=== PATIENT | male | born 1980 | race Caucasian/White ===

== ENCOUNTER → 2017-02-06 | Outpatient (CLI) | payer OTHER ==
[~2017-02-06] MED LIST: LIPITOR10 MG PO; LOPRESSOR25 MG; LOPRESSOR25 MG PO
--- NOTE | ~2017-02-06 | ESTC ---
Cardiac Perfusion Imaging Demographics Patient Name JACI Franco JR Gender Male Patient Number [id number] Race Visit Number [id number] Ethnicity Corporate ID Room Number Accession Number [id number] Height 72 inches Date of 1980 Weight 270 pounds Interpreting Gerardo De Jesus MD Date of study 02/06/2017 Physician Supervising /GULSHAN GRUBER Technologist Sarath Ferreira APRN Ordering Physician Stress technician trainee Stress ECG Reading Дмитрий Brooke Nurse Fracisco Gomez Physician JEANNE nurse practitioner physicians assistant Procedure Type: Nuclear Stress Test:Exercise, Cardiolite Stress Test Procedure Start time: 02/06/2017 08:10 Indications: Palpitations. Risk Factors The patient risk factors include:former tobacco use and ( years not smokin). Conclusions Summary Cardiolite SPECT images demonstrates an inducible reversible defect of mild to modertate severity involving the mid anterior wall. This does extend into the anterolateral region. No evidence of underlying fixed defect. TID is normal at 1.01 Gated images demonstrate normal left ventricular systolic function without inducible wall motion abnormalities. LVEF is 61% Stress Protocols Resting ECG RSR with rare PVC. Resting HR:75 bpm Resting BP:138/65 mmHg Pre-stress physical exam: Patient assessed by Zenobia Choe APRN prior to testing. Stress Protocol:Exercise Peak HR:171 bpm HR response: Appropriate Peak BP:184/84 mmHg BP response: Appropriate Predicted HR: 181 bpm HR/BP product:03021 % of predicted HR: 94 Test duration:10:17 min Reason for termination:Target heart rate Exercise effort:Good ECG Findings No ECG changes suggestive of ischemia. Arrhythmias None Symptoms Shortness of breath. Stress Interpretation Appropriate hemodynamic response to exercise. No significant ST-T wave changes with exercise. EKG portion is negative for ischemia by diagnostic criteria. The Sanchez Treadmill score was 10 .This corresponds to a low risk stress test. Stress supervision and interpretation provided by Zenobia Choe APRN Imaging Results Summed scores - Summed stress score: 1 - Summed rest score: 2 - Summed difference score: -1 Stress ejection Ejection fraction:62 % EDV :125 ml ESV :48 ml Stroke volume :77 ml LV mass :164 gr Imaging Protocols Rest Stress Isotope:Tc99m Sestamibi IV Isotope: Tc99m Sestamibi IV Isotope dose:15.7 mCi Isotope dose:45.5 mCi Date:02/06/2017 07:10 Date:02/06/2017 08:48 Technique: SPECT Technique: Gated Supine SPECT Supine Scan Time:45-60 minutes post Scan Time:45-60 minutes post injection injection Medical History Admission Data Admission date: 02/06/2017 Admission Time: 06:42 Hospital Status: Outpatient. Signatures dtt: Neal Carrillo (cardio) dtd: 02/06/17 0810 Physician Self Edit
== END | disposition disaster alternative care site (69) ==
LOC: GRAD 06:42
DX: R00.2 Palpitations (principal); Z87.891 Personal history of nicotine dependence
CPT/HCPCS: A9500

== ENCOUNTER 2017-02-16 21:55 | Observation (INO) | payer OTHER ==
[~2017-02-16] VITALS: Ht 182.9 cm; Wt 121.0 kg
--- NOTE | ~2017-02-16 | HP ---
PATIENT'S NAME: JACI [facility] AGE: 37 Y [address] ROOM: [place] [address] LOCATION: GPCU ADMIT DATE: 02/16/2017 History & Physical DISCHARGE DATE: 02/17/2017 FAMILY PHYSICIAN: Joseph Trevino MD ATTENDING PHYSICIAN: Joseph Trevino DATE OF SERVICE: CHIEF COMPLAINT: Chest pain. HISTORY OF PRESENT ILLNESS: The patient is a 37-year-old gentleman, who has seen Cardiology, and has recently underwent a treadmill Cardiolite stress test, which was positive. He was scheduled to have a left heart catheterization on Thursday, but developed exertional chest pain, with pain into his left arm that would not go away. So, he presented to the Emergency Room. After receiving three sublingual nitroglycerin, the chest pain did resolve. Enzymes and EKG were negative at the time of admission, and remain negative at this time. PAST MEDICAL HISTORY: Significant for 1. Chest pain. 2. Fatigue. 3. History of kidney stones. PAST SURGICAL HISTORY: Include 1. Appendectomy. 2. Right arm repair. 3. Left ankle surgery. 4. Kidney stone. ALLERGIES: TO BEE STINGS. CURRENT MEDICATIONS: Include 1. Metoprolol 25 mg b.i.d. 2. Aspirin 81 mg daily. SOCIAL HISTORY: The patient is . He does farm. A previous smoker, smoking cigarettes, and quitting in 2009. No alcohol use. PATIENT'S NAME: JACI [facility] AGE: 37 Y [address] ROOM: [place] [address] LOCATION: GPCU ADMIT DATE: 02/16/2017 History & Physical DISCHARGE DATE: 02/17/2017 FAMILY PHYSICIAN: Joseph Trevino MD ATTENDING PHYSICIAN: Joseph Trevino FAMILY HISTORY: Father is alive with history of DVTs. Mother with diabetes. Sister has had a previous heart catheterization. REVIEW OF SYSTEMS: CONSTITUTIONAL: Increased fatigue. No weight changes. No fever or chills. HEENT: He does wear glasses, otherwise negative. CARDIOVASCULAR: Positive for recent chest pain as per HPI. PULMONARY: No cough or shortness of breath. GASTROINTESTINAL: Negative. GENITOURINARY: Negative. PHYSICAL EXAMINATION: GENERAL: This is an alert, very pleasant male, in no acute distress. HEENT: Moist mucous membranes. Pupils were reactive. Extraocular muscles were intact. NECK: Supple with no lymphadenopathy. HEART: Regular without a murmur. LUNGS: Clear to auscultation bilaterally. ABDOMEN: Soft and nontender with no hepatosplenomegaly. GENITOURINARY: Deferred. EXTREMITIES: Showed no clubbing, cyanosis, or edema. LABORATORY DATA: Cardiac enzymes were negative as mentioned. DIAGNOSTIC STUDIES: EKG is stable. ASSESSMENT AND PLAN: 1. Chest pain with a positive stress test. We will admit for serial enzymes. We will consult Dr. Carrillo for probable heart catheterization in the morning. 2. Obesity. He needs to work on dietary changes and exercise. Dr. Joseph Trevino is to resume care in the morning. MD RALPH JIMENEZ/imtiaz PATIENT'S NAME: SANDY BEATTY [facility] AGE: 37 Y [address] ROOM: [place] [address] [facility] ADMIT DATE: 02/16/2017 History & Physical DISCHARGE DATE: 02/17/2017 FAMILY PHYSICIAN: Joseph Trevino MD ATTENDING PHYSICIAN: Joseph Trevino /[id number] D: [id number] T: [id number] HISTORY & PHYSICAL
--- NOTE | ~2017-02-16 | CATH ---
Cardiac Diagnostic Report Demographics Patient Name JACI Franco Gender Male JR Date of 1980 Age 37 year(s) Patient Number [id number] Date of Study 02/17/2017 Visit Number [id number] Room Number G[address] [place] [id number] Ht 182.88 cm Wt 121 kg Referring Uriel Amaya MD Primary Physician Physician Performing Gerardo De Jesus MD Secondary Physician Physician Diagnostic Gerardo De Jesus MD Assisting Physician Physician Interventional Physician [place] [facility] Sales Manager Physician Findings and Conclusions Diagnostic Findings and Conclusion Non-obstructive CAD Normal LV function EF 65% Diagnostic Recommendations Medical therapy Procedure Description The patient was brought to the diagnostic cardiac catheterization-EP laboratory in the fasting, non-sedated state. Informed consent was obtained in the written and verbal form after the risks and benefits were explained. The patient had no further questions and agreed to proceed. The planned puncture-incision site(s) were shaved and prepped with ChloraPrep and draped in the usual sterile manner. Conscious sedation, supplemental oxygen, and pain control medications were delivered by a registered nurse under physician guidance. Surface ECG rhythm, blood pressure measurement, and pulse oximetry were monitored throughout the procedure. Arterial access. The access site was infiltrated with lidocaine. The vessel was entered with the Seldinger technique. A sheath was advanced into the vessel and used for catheter placement. Selective left coronary angiography. A catheter was advanced into the left coronary vessel ostium under Fluoroscopic guidance. Contrast was injected by hand. Images were obtained in multiple projections. Selective right coronary angiography. A catheter was advanced into the right coronary vessel ostium under fluoroscopic guidance. Contrast was injected by hand. Images were obtained in multiple projections. Left heart catheterization with ventriculography. A catheter was advanced across the aortic valve to the left ventricle under fluoroscopic guidance. Resting hemodynamics were obtained. With the catheter at the left ventricular apex, contrast was injected. Images were obtained in [place] projections. Post-ventriculography LV pressure was obtained. The catheter was gradually withdrawn into the aorta with continuous pressure recording. Arterial artery hemostasis was achieved. The patient was transferred to a regular nursing floor via cart accompanied by a nurse. The patient left the laboratory in stable condition. Diagnostic Cath Status: Urgent Procedure Procedure Type Diagnostic procedure:Ventriculogram:, Left, Angiography:, Coronary Angios w/[facility] Indications: Abnormal cardiolyte. The procedure was explained in detail to the patient. Risks, complications and alternative treatments were reviewed. Written consent was obtained. Medications Reviewed with Patient prior to Procedure. Angiographic Findings Dominance: Right Cardiac Arteries and Lesion Findings LMCA: Normal (0% Stenosis).Large WNL LAD: Normal (0% Stenosis).Large prox, medium mid, distal small all normal Diag 1 small ok LCx: Normal (0% Stenosis).Large ND, wnl OM1 small OM2 large wnl RCA: Normal (0% Stenosis).Large wnl PL medium wnl PDA medium wnl Procedure Data Procedure Date Date: 02/17/2017Start: 11:19 AMEnd: 11:38 AM Entry Locations - Retrograde Percutaneous access was performed through the Right Femoral artery (Primary location). A 6 Fr sheath was inserted. Hemostasis was successfully obtained using Angio-Seal STS PLUS (St. Esvin). Closure Comments: deployed by lore. Procedure Medications Order and Administration + + +-------+------+ !Time !Medication !Dosage !Route ! + + +-------+------+ !02/17/2017 11:16 AM !Versed !1 mg !I.V. ! + + +-------+------+ !02/17/2017 11:16 AM !Fentanyl !25 mcg !I.V. ! + + +-------+------+ !02/17/2017 11:20 AM !Versed !1 mg !I.V. ! + + +-------+------+ Devices Used - A6 Fr. BS JL 4 Diag. Catheterwas used for:Left coronary angiography. - A6 Fr. BS JR 4 Diag. Catheterwas used for:Right coronary angiography. - A6 Fr. BS Angled Pigtail Diag. Catheterwas used for:Left ventriculography. Contrast Material - Isovue [id number] ml Fluoroscopy Time: Diagnostic: 3:06 minutes. Total: 3:06 minutes. Fluoroscopy Dose: Diagnostic: 1027 mGy. Total: 1027 mGy. Estimated Blood Loss: 5 ml. Medical History Performed Procedures and Imaging Results - Stress testing with SPECT MPIwas performed. Results were: Positive. Allergies - No known allergies. Risk Factors The patient risk factors include:last creatinine: 1.3 mg/dl, creatinine clearance: 130.57 ml/min and former tobacco use. Admission Data Admission Date: 02/16/2017 Admission Time: 11:46 PM Admit Source: Emergency department Insurance Payors: Private health insurance. Admission Medications + +------+------+ + + + + !Medication !Dosage!Times !Last !Last !Administered !Comments ! ! ! !Per !Delivery !Delivery ! ! ! ! ! !Day !Date !Time ! ! ! + +------+------+ + + + + !Beta ! ! ! ! !Yes ! ! !Timmy ! ! ! ! ! ! ! !(any) ! ! ! ! ! ! ! + +------+------+ + + + + !Statin ! ! ! ! !Yes ! ! !(any) ! ! ! ! ! ! ! + +------+------+ + + + + Clinical Evaluation Leading to Procedure - The patient's CAD presentation was assessed as: Unstable angina. - The patient's anginal syndrome during the past two weeks was assessed as: Class III according to the [place] Cardiovascular Society Classification System (CCS). Anti-anginal medications were prescribed during the past two weeks. The medications are: Beta Blockers and Other. VA LV function assessed as:Normal. Ejection Fraction - 02/17/2017 - Method: LV gram. EF%: 65. LVA Segment Contractility 1 - Normal 3 - Mild 5 - Severe 7 - Dyskinesis hypokinesis hypokinesis 2 - 4 - Moderate 6 - Akinesis 8 - Aneurysm Hypokinesis hypokinesis Hemodynamics Condition: Rest O2 Consumption: Estimated: 281.96Heart Rate: 56 bpm Pressures (mmHg) +-----+ + !Site !Pressure ! +-----+ + !AO !96/62 (79) ! +-----+ + !LV !106/0 ,13 ! +-----+ + !LV !108/3 ,14 ! +-----+ + !LV !108/-10 ,12 ! +-----+ + !LV !113/-3 ,13 ! +-----+ + !AO !102/59 (80) ! +-----+ + !LV !110/-5 ,13 ! +-----+ + Valve Gradients and Areas + +---------+---------+---------+ +---------+ + !Valve !Peak !Mean !Area !Index !Flow !Source ! + +---------+---------+---------+ +---------+ + !Aortic !7 !10 ! ! ! ! ! + +---------+---------+---------+ +---------+ + !Aortic !7 !10 ! ! ! ! ! + +---------+---------+---------+ +---------+ + Shunts Oxygen Values O2 Capacity 216.24 O2 Consumption 281.96 Discharge Data Discharge Date: 02/17/2017 Hospital Status: Inpatient Signatures dtt: Neal Carrillo (cardio) dtd: 02/17/17 1119 Physician Self Edit
--- NOTE | ~2017-02-16 | ER ---
PATIENT'S NAME: JACI [facility] AGE: 37 Y [address] ROOM: [place] [address] LOCATION: GPCU ADMIT DATE: 02/16/2017 ER/Outpatient Report DISCHARGE DATE: FAMILY PHYSICIAN: Joseph Trevino MD ATTENDING PHYSICIAN: Joseph Trevino TIME OF ARRIVAL: 2150 hours. TIME SEEN: 2200 hours. CHIEF COMPLAINT: This is a 37-year-old male. He is previously quite healthy. He is in with complaint of chest pain, left arm pain and heaviness, intermittently over the past 24 to 36 hours. HISTORY OF PRESENT ILLNESS: The patient reports that he has been having intermittent chest pain for the past several weeks. He had a stress test 9 days ago that he failed and a heart cath had been scheduled. He states he has had an acceleration of his chest pain and palpitations that began about 36 hours ago. He states he has had markedly increased frequency of episodes of pain and palpitations. PAST MEDICAL HISTORY: He denies any chronic medical problems. CURRENT MEDICATIONS: Include metoprolol, which he started recently because of his palpitations. REVIEW OF SYSTEMS: Otherwise, negative. SOCIAL HISTORY: He is a nonsmoker. He chews about 1 can of tobacco a day. PHYSICAL EXAMINATION: GENERAL: Alert, overweight male in no acute distress. VITAL SIGNS: Stable. SKIN: Warm and dry. Color is normal. HEAD, EARS, EYES, NOSE, AND THROAT: Normal. NECK: Supple. HEART: Regular rate and rhythm without murmur. LUNGS: Clear. Breath sounds are equal. ABDOMEN: Soft and nontender. PATIENT'S NAME: JACI [facility] AGE: 37 Y [address] ROOM: [address] [place] [id number] LOCATION: GPCU ADMIT DATE: 02/16/2017 ER/Outpatient Report DISCHARGE DATE: FAMILY PHYSICIAN: Joseph Trevino MD ATTENDING PHYSICIAN: Joseph Trevino EXTREMITIES: Normal. NEUROLOGIC: Exam is normal. LABORATORY DATA: EKG revealed normal sinus rhythm with no acute ST or T-wave changes. CBC, comprehensive metabolic profile, and cardiac enzymes were negative. EMERGENCY DEPARTMENT COURSE: The patient was given nitroglycerin 0.4 sublingual x3 and was pain free after that. Dr. Trevino was called and agreed to make arrangements to admit the patient. The slide forming machine tender was called. ASSESSMENT: Chest pain/accelerating unstable angina. PLAN: Admit for serial enzymes and inpatient heart catheterization. MD PTEEY ODONNELL/sierral /[id number] d: 02/17/17 0500 t: 03/03/17 1819, OUTPATIENT REPORT
--- NOTE | ~2017-02-16 | CON ---
PATIENT'S NAME: SANDY BEATTY [facility] AGE: 37 Y [address] ROOM: [place] [address] LOCATION: GPCU ADMIT DATE: 02/16/2017 Consultation DISCHARGE DATE: FAMILY PHYSICIAN: Joseph Trevino MD ATTENDING PHYSICIAN: Joseph Trevino REASON FOR CONSULT: Chest pain. HISTORY OF PRESENT ILLNESS: This is a 37-year-old gentleman, well known to Dr. Brenner, who recently underwent a treadmill Cardiolite stress test that was positive showing anterior wall provocable ischemia. He was scheduled for left heart catheterization this Thursday. 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 He started experiencing some chest discomfort with left arm pain that would not go away. Therefore, he presented to the emergency room for further evaluation. He received 3 sublingual nitroglycerin with total relief then of his chest pain. He was then admitted to the hospital for serial cardiac enzymes and probable left heart catheterization will be scheduled in the morning. His cardiac enzymes had been negative. His sodium and potassium were fine. Creatinine was 1.4 on admission. Magnesium was 2.2. His white count was 7.3 with a hemoglobin of 16.2. His EKG is showing a regular sinus rhythm without ST or T-wave changes. PAST MEDICAL HISTORY: 1. Presyncope. 2. He did have symptomatic PVCs noted on his Zio monitor. 3. Chest pain. 4. Fatigue. 5. History of kidney stones. PAST SURGICAL HISTORY: 1. Appendectomy. 2. Right arm repair. 3. Kidney stone removal. 4. Left ankle surgery. ALLERGIES: TO BEES CAUSING ANAPHYLAXIS. HOME MEDICATIONS: 1. Metoprolol tartrate 25 mg p.o. b.i.d. 2. Aspirin 81 mg daily. SOCIAL HISTORY: PATIENT'S NAME: SANDY BEATTY [facility] AGE: 37 Y [address] ROOM: [place] [address] LOCATION: GPCU ADMIT DATE: 02/16/2017 Consultation DISCHARGE DATE: FAMILY PHYSICIAN: Joseph Trevino MD ATTENDING PHYSICIAN: Joseph Trevino He is a former smoker, he smokes a pack of cigarettes a day for 10 years, he quit in 2009. He does not drink alcohol. FAMILY HISTORY: Father is alive, he has a history of DVTs and is on anticoagulation. His mother is alive, she is overweight, she has diabetes mellitus. He is . He has a daughter and 2 sons who are all healthy. He has a sister who had a heart cath done in the past. REVIEW OF SYSTEMS: GENERAL: He has been more fatigued lately. He denies any weight loss. No fevers, chills, or sweats. HEENT: Head: No history of headache. Eyes: No blurred vision or double vision. He does wear corrective lenses at times. Ears: No problems with hearing. Nose: No epistaxis or rhinorrhea. Mouth: No gingival bleeding. PULMONARY: No complaints of cough or hemoptysis. CV: Per HPI. GI: Negative for nausea, vomiting, or diarrhea. No melena. No hematochezia. : Negative for dysuria, polyuria, or hematuria. He does have problems with kidney stones. ENDOCRINE: No history of hyper or hypothyroid or hyperglycemia. NEUROLOGIC: He does have a little problem with anxiety. DERMATOLOGIC: No skin, hair, or nail changes that are concerning. HEMATOLOGIC: He denied anemia, leukemia, or cancer. MUSCULOSKELETAL: No complaints of arthralgias or myalgias. PHYSICAL EXAMINATION: VITAL SIGNS: His height is 72 inches tall, weight is 270 pounds, and BMI is 36.6. Blood pressures are in the 130s/60, heart rate is 70, and O2 saturation is 95%. GENERAL: This is alert, oriented, very pleasant male who appears to be in no acute distress. HEENT: His pupils were equal, they did react briskly to light. EOMs are intact. NECK: Soft and supple. No lymphadenopathy. No thyromegaly. JVD is flat. No carotid bruits were noted. CV: Regular with a normal S1 and S2 without murmur. No rubs, clicks, or gallops were noted. CHEST: Breath sounds were clear to auscultation without evidence of wheezes, rales, or rhonchi. ABDOMEN: Soft. Bowel sounds are present, without evidence of rebound tenderness. EXTREMITIES: No peripheral edema, no clubbing, no cyanosis. Distal pulses are 2+/4. DERMATOLOGIC: His skin is warm, dry, and pink. His face is little flushed. PATIENT'S NAME: SANDY BEATTY [facility] AGE: 37 Y [address] ROOM: [address] [place], [place] [address] [facility] ADMIT DATE: 02/16/2017 Consultation DISCHARGE DATE: FAMILY PHYSICIAN: Joseph Trevino MD ATTENDING PHYSICIAN: Joseph Trevino PSYCHIATRIC: His mood and affect are pleasant. ASSESSMENT: 1. Chest pain with noted positive stress test. We are going to schedule him for a left heart catheterization this morning. The risks and benefits have been explained to him and he is in agreement and willing to proceed with that heart catheterization. 2. Chronic fatigue. He does have a history of snoring, but we will see how he does after the heart catheterization and further recommendations will be forthcoming. 3. Symptomatic premature ventricular contractions. He is to continue with his beta-henrik therapy. 4. Obesity. He is working on dietary restraints. Further recommendations will be forthcoming. The assessment and plan, history of present illness, and physical exam are per Dr. Brenner. We would like to thank Dr. Joseph Trevino for allowing us to participate in the patient's care. ANNEL CHACON APRN FOR MIKA BRENNER MD TGP/sierral /[id number] d: 02/17/17 1822 t: 02/25/17 1219, CONSULTATION REPORT
[2017-02-16 22:32] LABS: BASOPHIL % 0.6 %; EOSINOPHIL # 0.1 K/uL (0.0-0.5); EOSINOPHIL % 1.4 %; HEMATOCRIT 43.6 % (37.0-53.0); HEMOGLOBIN 15.9 g/dL (12.0-17.0); IMMATURE GRANULOCYTE % 0.4 %; LYMPHOCYTE # 2.4 K/uL (0.8-4.0); LYMPHOCYTE % 34.1 %; MCH 29.8 pg (27.0-34.0); MCHC 36.5 gm/dL (32.0-36.5); MCV 81.6 fl (83.0-98.0); MONOCYTE # 0.5 K/uL (0.0-1.0); MONOCYTE % 7.7 %; NEUTROPHIL # (ANC) 3.9 K/uL (1.4-9.0); NEUTROPHIL % 55.8 %; NRBC % 0 /100WBC (0-0.00); PLATELET COUNT 199 K/uL (150-450); RBC 5.34 M/uL (4.00-6.00); RDW-CV 12.1 % (11.9-14.6)
[2017-02-16 22:42] LABS: INR - (THERAPEUTIC) 0.95 (0.92-1.07); PTT 26 SECONDS (25-32)
[2017-02-16 22:51] LABS: ALBUMIN 4.1 gm/dL (3.5-5.0); ALK PHOS 70 IU/L (33-138); ALT 57 IU/L (12-78); ANION GAP 10.9 (10.0-19.0); AST 35 IU/L (10-40); BLOOD UREA NITROGEN 20 mg/dL (6-24); CALCIUM 9.3 mg/dL (8.5-10.5); CHLORIDE 107 mMol/L (96-110); CO2 23 mMol/L (22-32); CPK 271 IU/L (35-332); CREATININE 1.3 mg/dL (0.6-1.3); ESTIMATED GFR (MDRD EQUATION) > 60; MAGNESIUM 2.2 mg/dL (1.8-2.6); POTASSIUM 3.9 mMol/L (3.7-5.1); SODIUM 137 mMol/L (135-145); TOTAL BILIRUBIN 0.6 mg/dL (0.0-1.5); TOTAL PROTEIN 7.4 g/dL (6.0-8.4)
[2017-02-17 00:20] LABS: CPK 246 IU/L (35-332)
[2017-02-17] MEDS ORDERED: LOPRESSOR25 MG (00:27)
[2017-02-17] MEDS ORDERED: LOPRESSOR25 MG PO (00:28)
--- NOTE | 2017-02-17 02:37 | NUR ---
Patient presented to the ER with chest "burning", pain, and shortness of breath. He received some medications in ER and is currently denies any chest discomfort at this time. He states he has had chest pain for a couple weeks. He did under go a stress test last week and found out that result was positive today (02/16/17) and was to have a heart cath on thursday. He has NKA besides bee stings. Heart history of PVCs, and no other significant health history.
--- NOTE | 2017-02-17 04:13 | NUR ---
Significant Event: A&Ox3, VSS on room air. Denies chest pain at this time. Resting well in bed. 1 void in ER, UA needed. NPO for possible heart cath in AM. [place] to see. Denies needs. SBA to bathroom. Follow up: Continue with plan of care.
[2017-02-17 06:21] LABS: CPK 189 IU/L (35-332)
[2017-02-17 12:59] LABS: CPK 152 IU/L (35-332)
[2017-02-17] MEDS ORDERED: LIPITOR10 MG PO (13:17)
--- NOTE | 2017-02-17 14:27 | NUR ---
PT A/OX3. PIV DC'D PRIOR TO D/C. R) GROIN SOFT, NO HEMATOMA, CSM INTACT. DENIES ANY SOB, ARIAS, N/T, OR YORK. VSS, AFEBRILE, LS CLEAR ON RA.
== END 2017-02-17 14:30 | disposition disaster alternative care site (69) ==
LOC: GMED 21:55 → GPCU 23:46
PROVIDERS: Emergency Medicine; ADMIT Family Medicine
DX: I25.110 Atherosclerotic heart disease of native coronary artery with unstable angina pectoris (principal); Z98.890 Other specified postprocedural states; I49.3 Ventricular premature depolarization; E66.9 Obesity, unspecified; Z68.36 Body mass index [BMI] 36.0-36.9, adult; Z87.891 Personal history of nicotine dependence; Z79.82 Long term (current) use of aspirin; Z79.899 Other long term (current) drug therapy; Z90.49 Acquired absence of other specified parts of digestive tract
CPT/HCPCS: C1760; G0378; J1644; J2250; J3010; J7030

== ENCOUNTER 2017-02-24 00:14 | Emergency (ER) | payer OTHER ==
--- NOTE | ~2017-02-24 | ER ---
PATIENT'S NAME: JACI [facility] AGE: 37 Y [address] ROOM: [place], [place] [address] LOCATION: ED ADMIT DATE: 02/24/2017 ER/Outpatient Report DISCHARGE DATE: 02/24/2017 FAMILY PHYSICIAN: Joseph Trevino MD ATTENDING PHYSICIAN: Chano Zapata Admission date and time documented in the medical record. I saw the patient at 0025 hours. CHIEF COMPLAINT: Head pressure, chest pain, and fever. HISTORY OF PRESENT ILLNESS: This patient is a 37-year-old male who today has developed left lower chest pain, generalized headache, fullness in his head, fever, nonproductive cough, and nausea. He thinks he is getting an infection. He has had some problems with palpitations and chest pain. A recent heart catheterization this month was negative. He had a temperature of 101.5 at home. Did take aspirin here in the emergency department, was 98.4 orally. No abdominal pain, nausea, vomiting, or diarrhea. No urinary frequency, urgency, or dysuria. No lightheadedness, dizziness, syncope, or near syncope. No fall or trauma. No eyes, ears, nose, throat, neck, or spine pain. No history of neuro changes, psych issues, endocrine problems. HOME MEDICATIONS: See attached medication list. ALLERGIES: NONE. SOCIAL HISTORY: Nonsmoker. Chews a can of tobacco a day. Occasional intake of alcohol. SIGNIFICANT PAST MEDICAL HISTORY: Palpitations, tobacco abuse, and nephrolithiasis. OPERATIONS: Cystoscopy with stone removal and stent placement, appendectomy, cardiac catheterization, and right arm surgery. REVIEW OF SYSTEMS: All systems reviewed by me are negative with the exception of those discussed in the history of present illness. PHYSICAL EXAMINATION: PATIENT'S NAME: JACI [facility] AGE: 37 Y [address] ROOM: [place], [place] [address] LOCATION: ED ADMIT DATE: 02/24/2017 ER/Outpatient Report DISCHARGE DATE: 02/24/2017 FAMILY PHYSICIAN: Joseph Trevino MD ATTENDING PHYSICIAN: Chano Zapata VITAL SIGNS: Temperature 98.4 orally, pulse 94, respirations 16, blood pressure 151/86, O2 saturation on room air is 95%. HEENT: Head: Normocephalic. Eyes: Clear. Ears: Clear TMs bilaterally. Nose and throat: Clear. NECK: Negative. LUNGS: Some scattered rhonchi. Coarse cough. HEART: Regular. Pulses are palpable. ABDOMEN: Soft, nondistended, nontender. Good bowel tones. EXTREMITIES: Intact. NEUROVASCULAR: Intact. SKIN: Clear. No skin eruptions or rash. DIAGNOSTIC DATA: EKG showed sinus rhythm. No acute ST elevation, ischemic change, or arrhythmia. Chest x-ray showed no acute infiltrate. We will review x-ray with the radiologist. LABORATORY DATA: CPK was 113. Reported oxzje-vv-tija cardiac enzymes were normal. CRP was 0.52. ProBNP was less than 30. CMS was normal except for a slightly elevated creatinine 1.4, low GFR of 56. Lactate was 0.9. White count is 4800, 72 segs, 16 lymphs, 11 monos, 1 baso. Hemoglobin was 15.5, hematocrit 43.0, and platelet count is 159,000. D-dimer is 0.66. I did give the patient 1 L of normal saline IV in the emergency room, Benadryl 50 mg IV in the emergency room, followed 10 minutes later by Compazine 10 mg, Nubain 5 mg IV for headache. The patient did well. IMPRESSION: 1. Bronchitis. 2. Headache. 3. Palpitations. 4. Tobacco abuse. 5. Mild renal insufficiency. PLAN: The patient dismissed home. Observation. Activity as tolerated. Fluids, good hydration. Diet as tolerated. Continue present home medications and care. Z-Brigido, take as directed. Albuterol oral inhaler, 2 puffs 30 seconds apart 4 times a day and p.r.n. as needed. If he gets chest tightness and wheezing, follow up with personal physician as needed. Discussion ensued with the patient concerning my findings and recommendations, he understands. PATIENT'S NAME: SANDY BEATTY [facility] AGE: 37 Y [address] ROOM: [place] [address] LOCATION: ED ADMIT DATE: 02/24/2017 ER/Outpatient Report DISCHARGE DATE: 02/24/2017 FAMILY PHYSICIAN: Joseph Trevino MD ATTENDING PHYSICIAN: Chano Zapata MD SDS/modl /[id number] d: 02/24/17629 t: 02/24/17 1809, OUTPATIENT REPORT
[2017-02-24 00:49] LABS: BASOPHIL % 0.6 %; EOSINOPHIL % 0.4 %; HEMOGLOBIN 15.5 g/dL (12.0-17.0); IMMATURE GRANULOCYTE % 0.4 %; LYMPHOCYTE # 0.8 K/uL (0.8-4.0); LYMPHOCYTE % 15.8 %; MCH 29.3 pg (27.0-34.0); MCV 81.3 fl (83.0-98.0); MONOCYTE # 0.5 K/uL (0.0-1.0); MONOCYTE % 10.6 %; MPV 9.4 fl (9.4-12.4); NEUTROPHIL # (ANC) 3.5 K/uL (1.4-9.0); NEUTROPHIL % 72.2 %; NRBC % 0 /100WBC (0-0.00); RBC 5.29 M/uL (4.00-6.00); RDW-CV 11.9 % (11.9-14.6); WBC 4.8 K/uL (4.0-11.0)
[2017-02-24 00:50] LABS: PLATELET COUNT 159 K/uL (150-450)
[2017-02-24 01:09] LABS: CPK 113 IU/L (35-332)
[2017-02-24 01:10] LABS: ANION GAP 11.1 (10.0-19.0); CALCIUM 9.5 mg/dL (8.5-10.5); CREATININE 1.4 mg/dL (0.6-1.3); POTASSIUM 4.1 mMol/L (3.7-5.1); TOTAL BILIRUBIN 0.7 mg/dL (0.0-1.5); TOTAL PROTEIN 7.1 g/dL (6.0-8.4)
== END 2017-02-24 02:07 | disposition disaster alternative care site (69) ==
LOC: GMED 00:14
PROVIDERS: Emergency Medicine
DX: J40 Bronchitis, not specified as acute or chronic (principal); R00.2 Palpitations; N28.9 Disorder of kidney and ureter, unspecified; F17.220 Nicotine dependence, chewing tobacco, uncomplicated; R51 Headache; Z90.49 Acquired absence of other specified parts of digestive tract; Z98.890 Other specified postprocedural states; Z79.899 Other long term (current) drug therapy; Z87.442 Personal history of urinary calculi
CPT/HCPCS: J0780; J1200; J2300; J7030